=== PATIENT | female | born 1935 | race Caucasian/White ===

== ENCOUNTER 2016-11-16 16:06 | Outpatient (CLI) | payer MEDICARE, OTHER | END 2016-11-16 16:07 | disposition home or self-care (01) | LOC: HPCALD 16:06 | PROVIDERS: ATTEND Family Medicine | DX: E53.8 Deficiency of other specified B group vitamins (principal) | CPT/HCPCS: 36415; 82607 ==

== ENCOUNTER 2016-12-28 11:08 | Outpatient (CLI) | payer MEDICARE, OTHER ==
[2016-12-28 12:06] LABS: #Basophils 0.1 thou/uL (0.0-0.2); #Eosinphils 0.1 thou/uL (0.0-0.7); #Lymphocytes 1.6 thou/uL (1.20-3.40); #Monocytes 0.7 thou/uL (0.11-0.59); #Neutrophils 3.3 thou/uL (1.40-6.50); %Basophils 1.3 % (0.0-1.0); %Eosinophils 2.3 % (0.0-10.0); %Monocytes 11.4 % (0.0-10.0); Hematocrit 41.6 % (36.0-47.0); Mean Platelet Volume 6.6 fL (7.4-10.4); Red Blood Cell (RBC) Count 4.39 mill/uL (4.20-5.40); White Blood Cell (WBC) Count 5.7 thou/uL (4.8-10.8)
[2016-12-28 12:12] LABS: ALT (SGPT) 17 U/L (0-55); AST (SGOT) 17 U/L (5-34); Acetaminophen Less than 3.0 mcg/mL (10.0-30.0); Alkaline Phosphatase 83 U/L (40-150); Anion Gap 12 mmol/L (10-20); BUN (Urea Nitrogen) 23 mg/dL (9.8-20.1); Bilirubin, Total 0.5 mg/dL (0.2-1.2); Calc. Creatinine Clearance 0 mL/min (70-130); Carbon Dioxide 31 mmol/L (23-31); Chloride 105 mmol/L (98-107); Estimated GFR-MDRD 53; Globulin 2.8 g/dL (2.4-3.5); Protein, Total 6.9 g/dL (5.8-8.1); Salicylate Less than 5.0 mg/dL (15.0-30.0)
[2016-12-28 12:37] LABS: Hemoglobin A1c 5.9 % (4.0-6.0)
== END 2016-12-28 11:09 | disposition home or self-care (01) ==
LOC: HPCALD 11:08
PROVIDERS: ATTEND Family Medicine
DX: E03.8 Other specified hypothyroidism (principal); E11.9 Type 2 diabetes mellitus without complications; I10 Essential (primary) hypertension; R43.8 Other disturbances of smell and taste
CPT/HCPCS: 36415; 80053; 80307; 82175; 83036; 83655; 83825; 84439; 84443; 85025

== ENCOUNTER 2017-01-19 13:17 | Outpatient (CLI) | payer MEDICARE, OTHER ==
[2017-01-19 15:46] LABS: Cardiac Risk 4.1 (Less than 4.5)
== END 2017-01-19 13:18 | disposition home or self-care (01) ==
LOC: HPCALD 13:17
PROVIDERS: ATTEND Family Medicine
DX: E78.5 Hyperlipidemia, unspecified (principal)
CPT/HCPCS: 36415; 80061

== ENCOUNTER 2017-04-01 16:53 | Outpatient (CLI) | payer MEDICARE, OTHER ==
[2017-04-02 17:48] LABS: Creatinine, Urine 72.39 mg/dL (47-110); Microalbumin Urine Less than 1.0 mg/dL (0.5-50.0); Microalbumin/Creat Ratio 13.8 mg/g (Less than 30)
== END 2017-04-01 16:54 | disposition home or self-care (01) ==
LOC: HPCALD 16:53
PROVIDERS: ATTEND Family Medicine
DX: E11.9 Type 2 diabetes mellitus without complications (principal)
CPT/HCPCS: 82043

== ENCOUNTER 2017-04-11 00:03 | Emergency (ER) | payer MEDICARE, OTHER ==
[2017-04-11] MEDS ORDERED: Nitroglycerin 2% Ointment 1 INCH/1 GM Packet ONE (00:28)
[2017-04-11 01:00] LABS: INR-International Normal Ratio 1.2; Prothrombin Time 15.8 SEC (12.0-14.7)
[2017-04-11 01:01] LABS: D-Dimer Test 2.17 *mcg/mL (0.27-0.43)
[2017-04-11 01:05] LABS: Hemoglobin 12.4 g/dL (12.0-16.0); Mean Corpuscular HGB CONC 34.9 g/dL (32.0-36.0); Mean Corpuscular Hemoglobin 32.4 pg (27.0-31.0); Mean Corpuscular Volume 92.8 fl (81.0-99.0); Mean Platelet Volume 8.7 fL (7.4-10.4); Platelet Count 193 thou/uL (130-400); Red Blood Cell (RBC) Count 3.81 mill/uL (4.20-5.40); White Blood Cell (WBC) Count 7.6 thou/uL (4.8-10.8)
[2017-04-11 01:11] LABS: ALT (SGPT) 17 U/L (8-55); AST (SGOT) 17 U/L (5-34); Albumin 3.6 g/dL (3.4-4.8); Alkaline Phosphatase 77 U/L (40-150); Anion Gap 17 mmol/L (10-20); BUN (Urea Nitrogen) 23 mg/dL (9.8-20.1); Bilirubin, Total 0.9 mg/dL (0.2-1.2); CK (CPK) 78 U/L (29-168); Calc. Creatinine Clearance 0 mL/min (70-130); Calcium 8.2 mg/dL (7.8-10.44); Carbon Dioxide 24 mmol/L (23-31); Chloride 102 mmol/L (98-107); Estimated GFR-MDRD 73; Globulin 2.5 g/dL (2.4-3.5); Glucose 152 mg/dL (83-110); Lipase 5 U/L (8-78); Potassium 3.5 mmol/L (3.5-5.1); Protein, Total 6.1 g/dL (6.0-8.3); Sodium 139 mmol/L (136-145)
[2017-04-11 01:12] LABS: CKMB 0.9 ng/mL (0-6.6)
[2017-04-11 01:25] LABS: Eosinophils 2 % (0-10); Lymphocytes 18 % (21-51); MDiff Complete? YES; Monocytes 5 % (0-10); Neutrophil 75 % (42-75); PLT Morphology Comment Appears Adequate; RBC Morphology Normal
[2017-04-11] MEDS ORDERED: Cefepime 1 GM VIAL ONE (02:56)
--- NOTE | 2017-04-11 12:02 | RAD ---
CHEST ONE VIEW HISTORY: Chest pain. Dyspnea. FINDINGS: The cardiac silhouette is magnified by projection. The pulmonary vasculature is slightly engorged. The mediastinum is midline with aortic calcification. There is no lobar consolidation or evidence of pneumothorax. fire warden leads overly the chest. IMPRESSION: 1. Pulmonary vascular congestion. 2. Atherosclerosis. POS: [facility]
--- NOTE | 2017-04-11 14:10 | CT ---
PRELIMINARY REPORT/[facility]/EMERGENCY AFTER HOURS PROCEDURE: EXAM: CT Angiography Chest With Intravenous Contrast CLINICAL HISTORY: 81 years old, female; Signs and symptoms; Shortness of breath; Patient HX: Pt presents to the er for generalized pain; SOB; Chest pain; Hypoxia \T\ elevated d-dimer; Additional info: Sub-optimal exam. Error during scanning/contrast injection TECHNIQUE: Axial computed tomographic angiography images of the chest with intravenous contrast using pulmonary embolism protocol. This CT exam was performed using one or more of the following dose reduction victor hugo hniques: automated exposure control, adjustment of the mA and/or kV according to patient size, and/o r use of iterative reconstruction technique. Coronal reformatted images were created and reviewed. CONTRAST: 95 mL of ISOVUE 370 administered intravenously. COMPARISON: No relevant prior studies available. FINDINGS: Pulmonary arteries: Unremarkable. No pulmonary embolism. Aorta: Atherosclerotic vascular calcification. No thoracic aortic aneurysm. Lungs: Mild compressive atelectasis in the bilateral lower lobes. There is a 5 mm groundglass nodula r opacity in the right upper lobe. Scattered groundglass opacities bilaterally. Pleural space: Small bilateral pleural effusions. No pneumothorax. Heart: Coronary artery calcifications. No significant pericardial effusion. No evidence of RV dysfun ction. Bones/joints: No acute fracture. No dislocation. Soft tissues: Unremarkable. Lymph nodes: Unremarkable. No enlarged lymph nodes. Gallbladder and bile ducts: Post cholecystectomy. IMPRESSION: 1. No pulmonary embolism is evident. 2. Groundglass opacities bilaterally may represent pneumonia. Recommend clinical correlation. Thank you for allowing us to participate in the care of your patient. Dictated and Authenticated by: Beryl Ohara MD 04/11/2017 2:17 AM Central Time ([place] \T\ [place]) FINAL REPORT CT ARTERIOGRAM CHEST WITH IV CONTRAST AND 3D MIP IMAGING 04/11/2017 0154 HOURS PERFORMED ON EMERGENCY BASIS HISTORY: Chest pain. Dyspnea. FINDINGS: The findings agree with the preliminary report by Dr. Ohara from [facility]. There is no CT evidence of pulmonary embolus. Bilateral pleural fluid is present. There is arteria l calcification. Nonspecific lymph nodes are scattered about the mediastinum. Mild ground glass op acity within each lung, centrally, may be related to mild pneumonitis or pulmonary vascular congesti on. POS: [facility]
== END 2017-04-11 03:50 | disposition short-term general hospital (02) ==
LOC: BURERS 00:03
DX: J18.9 Pneumonia, unspecified organism (principal); E11.9 Type 2 diabetes mellitus without complications; I10 Essential (primary) hypertension; E78.00 Pure hypercholesterolemia, unspecified; M19.90 Unspecified osteoarthritis, unspecified site; F41.9 Anxiety disorder, unspecified; Z79.899 Other long term (current) drug therapy
CPT/HCPCS: 36415; 71010; 71275; 80053; 82550; 82553; 83605; 83690; 83880; 84484; 85025; 85379; 85610; 85730; 87040; 93005; 94760; 96365; 96375; J0692; J3370

== ENCOUNTER 2017-04-26 16:22 | Outpatient (CLI) | payer MEDICARE, OTHER ==
[2017-04-26 16:56] LABS: Anion Gap 14 mmol/L (10-20); BUN (Urea Nitrogen) 19 mg/dL (9.8-20.1); Calc. Creatinine Clearance 0 mL/min (70-130); Calcium 9.1 mg/dL (7.8-10.44); Carbon Dioxide 28 mmol/L (23-31); Chloride 104 mmol/L (98-107); Estimated GFR-MDRD 68; Glucose 98 mg/dL (83-110); Potassium 4.1 mmol/L (3.5-5.1); Sodium 142 mmol/L (136-145)
== END 2017-04-26 16:23 | disposition home or self-care (01) ==
LOC: HPCALD 16:22
PROVIDERS: ATTEND Family Medicine
DX: E87.6 Hypokalemia (principal)
CPT/HCPCS: 36415; 80048

== ENCOUNTER 2017-05-21 15:41 | Emergency (ER) | payer MEDICARE, OTHER ==
[2017-05-21] MEDS ORDERED: Nitroglycerin 2% Ointment 1 INCH/1 GM Packet ONE ×2 (15:53→17:22)
[2017-05-21 16:04] LABS: Band 1 % (5-11); Eosinophils 3 % (0-10); Hemoglobin 14.1 g/dL (12.0-16.0); Lymphocytes 32 % (21-51); MDiff Complete? YES; Mean Corpuscular HGB CONC 34.2 g/dL (32.0-36.0); Mean Corpuscular Hemoglobin 31.2 pg (27.0-31.0); Mean Corpuscular Volume 91.2 fl (81.0-99.0); Mean Platelet Volume 7.1 fL (7.4-10.4); Monocytes 12 % (0-10); Neutrophil 50 % (42-75); Platelet Count 162 thou/uL (130-400); RBC Distribution Width 12.4 % (11.5-14.5); Reactive Lymphocytes 2 % (0-10); Red Blood Cell (RBC) Count 4.51 mill/uL (4.20-5.40); White Blood Cell (WBC) Count 5.1 thou/uL (4.8-10.8)
[2017-05-21 16:17] LABS: ALT (SGPT) 16 U/L (8-55); AST (SGOT) 16 U/L (5-34); Albumin 3.8 g/dL (3.4-4.8); Alkaline Phosphatase 80 U/L (40-150); Anion Gap 15 mmol/L (10-20); BUN (Urea Nitrogen) 23 mg/dL (9.8-20.1); Bilirubin, Total 0.5 mg/dL (0.2-1.2); CK (CPK) 65 U/L (29-168); Calc. Creatinine Clearance 0 mL/min (70-130); Carbon Dioxide 26 mmol/L (23-31); Chloride 104 mmol/L (98-107); Estimated GFR-MDRD 64; Globulin 2.8 g/dL (2.4-3.5); Glucose 121 mg/dL (83-110); Lipase 13 U/L (8-78); Potassium 3.8 mmol/L (3.5-5.1); Protein, Total 6.6 g/dL (6.0-8.3); Sodium 141 mmol/L (136-145)
[2017-05-21 16:19] LABS: Troponin I Less than 0.010 ng/mL (< 0.028)
[2017-05-21 16:21] LABS: Bilirubin Negative (Negative); Blood, Urine Negative (Negative); Clarity Clear (Clear); Glucose, Urine (Dipstick) Negative (Negative); Leukocyte Negative (Negative); Nitrite Negative (Negative); Protein, Urine (Dipstick) Negative (Neg-Trace); Specific Gravity, Urine 1.015 (1.005-1.030); Urobilinogen 0.2 mg/dL (0.2-1.0); pH, Urine 8.5 (5.0-9.0)
[2017-05-21] MEDS ORDERED: Ketorolac Tromethamine 30 MG/ML VIAL ONE (16:53)
--- NOTE | 2017-05-21 20:22 | RAD ---
PORTABLE CHEST 05/21/17 An AP portable film at 1547 is presented and compared with prior study of 04/11/17. The heart size is the same. There are no congestive changes today and no pleural effusions. The lungs are clear with no focal pulmonary infiltrates. The trachea is midline. IMPRESSION: No acute thoracic finding. POS: HOME
== END 2017-05-21 17:51 | disposition short-term general hospital (02) ==
LOC: BURERS 15:41
DX: R07.2 Precordial pain (principal); M25.511 Pain in right shoulder; I10 Essential (primary) hypertension; E11.9 Type 2 diabetes mellitus without complications; D51.0 Vitamin B12 deficiency anemia due to intrinsic factor deficiency; F41.9 Anxiety disorder, unspecified; Z79.899 Other long term (current) drug therapy; Z79.84 Long term (current) use of oral hypoglycemic drugs; Z79.891 Long term (current) use of opiate analgesic
CPT/HCPCS: 36415; 36416; 71010; 80053; 81003; 82550; 82553; 83690; 83880; 84484; 85025; 85379; 93005; 94760; 96374; J1885

== ENCOUNTER 2017-07-16 11:04 | Outpatient (CLI) | payer MEDICARE, OTHER ==
[2017-07-16 12:48] LABS: #Eosinphils 0.1 thou/uL (0.0-0.7); #Lymphocytes 1.1 thou/uL (1.20-3.40); #Monocytes 0.4 thou/uL (0.11-0.59); #Neutrophils 2.8 thou/uL (1.40-6.50); %Basophils 0.9 % (0.0-1.0); %Eosinophils 1.7 % (0.0-10.0); %Lymphocytes 25.8 % (21.0-51.0); %Monocytes 9.6 % (0.0-10.0); %Neutrophils 62.1 % (42.0-75.0); Hemoglobin 14.1 g/dL (12.0-16.0); Mean Corpuscular HGB CONC 34.6 g/dL (32.0-36.0); Mean Corpuscular Volume 92.4 fl (81.0-99.0); Mean Platelet Volume 6.9 fL (7.4-10.4); Platelet Count 162 thou/uL (130-400); RBC Distribution Width 12.5 % (11.5-14.5); Red Blood Cell (RBC) Count 4.41 mill/uL (4.20-5.40); White Blood Cell (WBC) Count 4.4 thou/uL (4.8-10.8)
[2017-07-16 13:02] LABS: ALT (SGPT) 14 U/L (8-55); AST (SGOT) 16 U/L (5-34); Alkaline Phosphatase 80 U/L (40-150); Anion Gap 14 mmol/L (10-20); BUN (Urea Nitrogen) 26 mg/dL (9.8-20.1); Bilirubin, Total 0.5 mg/dL (0.2-1.2); Calc. Creatinine Clearance 0 mL/min (70-130); Calcium 9.1 mg/dL (7.8-10.44); Cardiac Risk 4.1 (Less than 4.5); Chloride 105 mmol/L (98-107); Cholesterol 208 mg/dl (< 200 Desired); Estimated GFR-MDRD 67; Globulin 2.6 g/dL (2.4-3.5); Glucose 110 mg/dL (83-110); HDL Cholesterol 51 mg/dL (>60 Neg Risk); LDL Cholesterol, Calculated 135 mg/dL; Potassium 3.6 mmol/L (3.5-5.1); Protein, Total 6.6 g/dL (6.0-8.3); Sodium 144 mmol/L (136-145); Triglycerides 112 mg/dL (Less than 150)
[2017-07-16 13:24] LABS: Carbon Dioxide 29 mmol/L (23-31)
== END 2017-07-16 11:05 | disposition home or self-care (01) ==
LOC: HPCALD 11:04
PROVIDERS: ATTEND Family Medicine
DX: E78.5 Hyperlipidemia, unspecified (principal); E11.9 Type 2 diabetes mellitus without complications; D51.0 Vitamin B12 deficiency anemia due to intrinsic factor deficiency
CPT/HCPCS: 36415; 80053; 80061; 83036; 84443; 85025

== ENCOUNTER 2018-03-25 11:53 | Outpatient (CLI) | payer MEDICARE, OTHER ==
--- NOTE | 2018-03-25 17:58 | RAD ---
LEFT WRIST THREE VIEWS: 03/25/18 No acute fracture was seen. There is a cystic change at the base of the first metacarpal that is abou t 1 cm in size. The relationship between the trapezium and the first metacarpal is abnormal suggestin g excessive subluxation here. I do not know if there has been prior trauma in this location. The cyst ic change is reasonably well marginated. The possibility of an enchondroma is raised, though this cou ld be secondary to prior traumatic change here. There has probably been old trauma to the base of the fifth metacarpal. The carpal bones themselves appear intact. The distal radius and ulna appear normal. IMPRESSION: 1. 1 cm cystic lesion of the proximal first metacarpal. Its imaging characteristics are more iza ign than not. An enchondroma would be in the differential diagnosis. If there is particular pain here , ortho referral might be indicated, though I am doubtful that much would be done with it. 2. Abnormal relationship between the trapezium and the base of the first metacarpal. There is de finitely some degree of subluxation of the trapezium with respect to the first metacarpal. Most often this occurs as the result of prolonged arthritic changes. Code T POS: HOME
== END 2018-03-25 11:54 | disposition home or self-care (01) ==
LOC: BURRAD 11:53
PROVIDERS: ATTEND Family Medicine
DX: M85.442 Solitary bone cyst, left hand (principal)

== ENCOUNTER 2018-12-08 16:12 | Outpatient (CLI) | payer MEDICARE, OTHER ==
--- NOTE | 2018-12-08 20:22 | RAD ---
LEFT HAND THREE VIEWS: 12/08/18 No fracture or area of bony destruction was seen. There may have been old trauma to the base of the d istal phalanx of the thumb at the IP joint. Degenerative changes are seen in the first carpometacarpa l joint. IMPRESSION: Degenerative changes as noted. No acute findings. POS: HOME
--- NOTE | 2018-12-08 20:23 | RAD ---
RIGHT ELBOW FOUR VIEWS: 12/08/18 No acute fracture was seen. There does appears to be a small joint effusion, however. Some bony spurr ing is seen on the coronoid process of the ulna. The radial head appears intact. IMPRESSION: Mild arthritic change. Small joint effusion. Code T POS: HOME
== END 2018-12-08 16:13 | disposition home or self-care (01) ==
LOC: BURRAD 16:12
PROVIDERS: ATTEND Nurse Practitioner Family
DX: M25.521 Pain in right elbow (principal); M19.021 Primary osteoarthritis, right elbow; M25.421 Effusion, right elbow; M18.12 Unilateral primary osteoarthritis of first carpometacarpal joint, left hand